=== PATIENT | female | born 1985 | race Two or more races ===

== ENCOUNTER 2020-07-12 14:20 | Emergency (ER) | payer SELFPAY ==
[~2020-07-12] VITALS: Ht 162.6 cm; Wt 54.0 kg
[2020-07-12] MEDS ORDERED: LIDOCAINE 2% Multi-Dose 20 ML VIAL. IJ ONE (15:15)
--- NOTE | 2020-07-12 15:22 | PHYS DOC ---
General Adult EDM: Chief Complaint: LACERATION/AVULSION HPI: HPI: Patient is a 34 year old female presents to the emergency department complaining of accidentally cutting her left middle finger with a knife at approximately 1330 today. Patient complains of pain to the laceration site, complains of pain while moving her left middle finger, denies loss of sensation. Patient states her last tetanus immunization was longer than 5 years ago. Patient states her last menstrual cycle was on 18 June. Patient denies chest pain, shortness of breath, abdominal pain, nausea, vomiting, diarrhea, or neurological changes. Patient denies homicidal or suicidal ideation. Patient denies any other physical complaints or physical concerns. Patient denies allergies to medications, denies taking prescription medications at home. Review of Systems: Review of Systems: 14 body systems of review of systems have been reviewed. See HPI for pertinent positives and negative responses, otherwise all other systems are negative, nonpertinent or noncontributory. Heart Score: Risk Factors: Risk Factors: DM, Current or recent (<one month) smoker, HTN, HLP, family history of CAD, obesity. Risk Scores: Score 0 - 3: 2.5% MACE over next 6 weeks - Discharge Home Score 4 - 6: 20.3% MACE over next 6 weeks - Admit for Clinical Observation Score 7 - 10: 72.7% MACE over next 6 weeks - Early Invasive Strategies Physical Exam: PE: Constitutional: Well developed, well nourished, no acute distress, non-toxic appearance. HENT: Normocephalic, atraumatic, bilateral external ears normal, oropharynx moist, no oral exudates, nose normal. Eyes: PERRLA, EOMI, conjunctiva normal, no discharge. Neck: Normal range of motion, no tenderness, supple, no stridor. Cardiovascular:Heart rate regular rhythm, no murmur Lungs & Thorax: Bilateral breath sounds clear to auscultation Abdomen: Bowel sounds normal, soft, no tenderness, no masses, no pulsatile masses. Skin: Warm, dry, no erythema, no rash. Back: No tenderness, no CVA tenderness. Extremities: No tenderness, no cyanosis, no clubbing, ROM intact, no edema. Except for left middle finger has a 2.5 cm laceration at base of digit from lateral aspect finger through web to palmar aspect finger. Limited active range of motion related to pain and injury, suspicious of tenderness involvement. Distal cap refill less than 2 seconds. Neurologic: Alert and oriented X 3, normal motor function, normal sensory function, no focal deficits noted. Psychologic: Affect normal, judgement normal, mood normal. EKG: EKG: [] Radiology/Procedures: Radiology/Procedures: [] Course & Med Decision Making: Course & Med Decision Making Pertinent Labs and Imaging studies reviewed. (See chart for details) 34-year-old female, vital signs reviewed, presents emergency department for a laceration repair of her middle finger of the left hand. Examination was conc erning for possible tendinous injury, see laceration repair note for laceration procedure, exploration of laceration wound did not present with any obvious tendinous injury however related to limited active range of motion specifically abduction abduction of middle finger, and flexion of middle finger, satisfactory extension of middle finger. Distal cap refill remained less than 2 seconds after suture repair, patient remained neurovascular intact. The patient's middle finger was dressed and splinted with aluminum finger splint by ED nursing staff, the patient was given a orthopedic hand surgeon referral to follow-up with with instructions to contact today or contact a orthopedic surgeon or plastic surgeon of her choice today for further evaluation of suspected tendinous injury of the left middle finger. Patient gave verbal understanding of discharge home instructions, follow-up with plastic surgeon or hand surgeon today, return to ER precautions and concerns, home antibiotic use, suture care and removal in 10 days, discharged home without incident. Dragon Disclaimer: Dragon Disclaimer: This electronic medical record was generated, in whole or in part, using a voice recognition dictation system. Laceration Repair Lac Repair Indication: [] Laceration left hand middle finger Procedure: The patient was placed in the appropriate position and anesthesia around the laceration was achieved with 5 cc 2% lidocaine without epinephrine. The area was then cleansed with chlorhexidine soap, irrigated with 500 cc normal saline. The laceration was explored, no obvious tendinous injury or laceration appreciated, however limited range of motion give suspicion of tendinous injury. The laceration was closed with 10 interrupted sutures using 4-0 nylon. The wound area was then dressed with double antibiotic ointment, dressing, splinted with aluminum finger splint per ED nursing staff Total repaired wound length: 2.5 cm Other Items: [OTHER ITEMS] The patient tolerated the procedure well. Complications: Uncomplicated closure, suspicious for tendinous injury, an aluminum finger splint was placed, patient given follow-up with Ortho hand surgeon to make appointment today. Departure Departure Impression: Primary Impression: Laceration of left hand without complication, including fingers Referrals: NO PCP (PCP) Patient Instructions: Laceration Care, Adult Additional Instructions: Please call and make an appointment today to see a please call and make an appointment today to see a hand surgeon or a plastic surgeon, you may use the orthopedic surgeon Dr. Li that I have provided or any surgeon of your choice. I am concerned that you may have lacerated a tendon to your left middle finger, please make the appointment today for evaluation of a tendon injury to your left middle finger. Please leave aluminum finger splint in place until examined and removed by your doctor and/or an orthopedic surgeon, please have stitches removed in 10 days. Please keep clean and dry, use antibiotic ointment to suture site, do not soak your hands in water, do not do dishes, you may cleanse with soap and water daily however do not immerse your hands in water for any period of time. Please fill and take antibiotic as directed. Please return to the emergency department for worsening symptoms or other concerns. Xin Li MD Orthopaedic Surgery Address:[facility] [address] [place] [address] EMERGENCY DEPARTMENT GENERAL DISCHARGE INSTRUCTIONS Thank you for coming to [facility] Emergency Department (ED) today and trusting us with you care. We trust that you had a positive experience in our Emergency Department. If you wish to speak to the department management, you may call the Director at [phone]. YOUR FOLLOW UP INSTRUCTIONS ARE FOLLOWS: 1. Do you have a private Doctor? If you do not have a private doctor, please ask for a resource list of physicians or clinics that may be able to assist you with follow up care. 2. The Emergency Physicain has interpreted your x-rays. The X-Ray specialist will also review them. If there is a change in the findings, you will be notified in 48 hours when at all possible. 3. A lab test or culture has been done, your results will be reviewed and you will be notified if you need a change in treatment. ADDITIONAL INSTRUCTIONS AND INFORMATION: 1. Your care today has been supervised by a physician who is specially trained in emergency care. Many problems require more than one evaluation for a complete diagnosis and treatment. We recommend that you schedule your follow up appointment as recommended to ensure complete treatment of you illness or injury. If you are unable to obtain follow up care and continue to have a problem, or if your condition worsens, we recommend that you return to the ED. 2. We are not able to safely determine your condition over the phone nor are we able to give sound medical advice over the phone. For these safety reasons, if you call for medical advice we will ask you to come to the ED for further evaluation. 3. If you have any questions regarding these discharge instructions please call the ED at [phone]. SAFETY INFORMATION: In the interest of safety, wellness, and injury prevention; we encourage you to wear your sealbelt, if you smoke; quite smoking, and we encourage family to use a protective helmet for bicycling and other sporting events that present an increased risk for head injury. IF YOUR SYMPTOMS WORSEN OR NEW SYMPTOMS DEVELOP, OR YOU HAVE CONCERNS ABOUT YOUR CONDITION; OR IF YOUR CONDITION WORSENS WHILE YOU ARE WAITING FOR YOUR FOLLOW UP APPOINTMENT; EITHER CONTACT YOUR PRIMARY CARE DOCTOR, THE PHYSICIAN WHOSE NAME AND NUMBER YOU WERE GIVEN, OR RETURN TO THE ED IMMEDIATELY. Scripts Cephalexin (CEPHALEXIN) 500 Mg Tablet 1 TAB PO BID, #20 TAB 0 Refills Prov: DIYA DUFFY APRN 07/12/20 DIYA DUFFY APRN Jul 12, 2020 15:22
[2020-07-12 15:35] VITALS: BP 168/71
[2020-07-12] MEDS ORDERED: BACITRACIN TOPICAL OINT PACKET. TP ONE (16:30)
[2020-07-12] MEDS ORDERED: DIPH,PERTUSS(ACELL),TET VAC/PF 0.5 ML SYRINGE. VAX IM ONE (16:30)
[2020-07-12] MEDS ORDERED: CEPH500T PO (16:33)
== END 2020-07-12 17:06 | disposition home or self-care (01) ==
LOC: ER 14:20
DX: S61.213A Laceration without foreign body of left middle finger without damage to nail, initial encounter (principal); X58.XXXA Exposure to other specified factors, initial encounter; Y93.89 Activity, other specified; Y92.89 Other specified places as the place of occurrence of the external cause; Y99.8 Other external cause status
CPT/HCPCS: 12001; 99283